=== PATIENT | female | born 1965 | race Two or more races ===

== ENCOUNTER → 2017-07-03 | Outpatient (CLI) | payer OTHER ==
--- NOTE | ~2017-07-03 | MY29 ---
[facility] A Service of [facility] RADIOLOGY TEXT RESULTS PATIENT: DANNIE FOX LOCATION: [facility] : 61 UNIT #: [id number] AGE: [address]: JOSE SEBASTIAN APRN SEX: F ORDER DR: [id number] [facility] [address]. [place], [place] [address] [id number] O MR#: [id number] Acc #: [id number] NAME: DANNIE FOX : 1965 SEX: F STUDY DATE/TIME: 07/03/2017 15:36 UNIT: [facility] ROOM: STUDY DESCRIPTION: MY [facility] SCREENING W/ CAD BILAT Attending Physician: Kaden Sebastian M.D. Ordering Physician: Kaden Sebastian M.D. Primary Care Physician: Kaden Sebastian M.D. MEDICAL IMAGING REPORT This report is preliminary unless electronic signature is present EXAM Bilateral digital screening mammogram with CAD device 07/03/2017 HISTORY Routine screening. FINDINGS Digital imaging of each breast was completed utilizing a two-view examination of each breast in craniocaudal and mediolateral-oblique projections. Review and interpretation of digital mammograms include a second review in conjunction with FDA-approved CAD device. There is a normal parenchymal presentation bilaterally consistent with the patient's age. There are no breast masses imaged and no parenchymal asymmetry is visualized. There are no suspicious microcalcifications and I see no focal architectural disturbance. IMPRESSION Negative screening digital mammogram. One-year followup recommended. Patients over the age of 40 are entered into a reminder system with target due date for the next mammogram. A result letter will also be sent to the patient. BIRADS: 1 Negative Dictated by... Tera Schmid M.D. THIS IS AN ELECTRONICALLY VERIFIED REPORT Tera Schmid M.D. at 07/05/2017 4:54 PM SP/felix [facility] A Service of [facility] RADIOLOGY TEXT RESULTS PATIENT: DANNIE FOX LOCATION: [facility] : 61 UNIT #: [id number] AGE: [address]: JOSE SEBASTIAN APRN SEX: F ORDER DR: TD: 07/05/2017 14:51 JOB #: [id number] MEDICAL IMAGING REPORT Page 1 of 1 COPY
== END | disposition home or self-care (01) ==
LOC: CWCC 15:09
DX: Z12.31 Encounter for screening mammogram for malignant neoplasm of breast (principal)
CPT/HCPCS: G0202